=== PATIENT | female | born 1950 | race Caucasian/White ===

== ENCOUNTER 2017-12-29 09:13 | Day surgery (SDC) | payer OTHER ==
[~2017-12-29] VITALS: Ht 157.5 cm; Wt 60.5 kg
[~2017-12-29 09:13] MED LIST: ALPR-475 PO; AMLO10TA2 PO; AMLO5TAB2 PO; ASPI-496 PO; ASPI-621 PO; ATOR10TA9 PO; ATOR20TA PO; CARI250T PO; CITA10TA4 PO; DOXY100T PO; EZET10TA18 PO; INSU100I28 SQ-INSULIN; INSU100V13 SQ; LAMO25TA PO; LEVO500T47 PO; LISI-167 PO; LISI2.5T PO; LORA-445 PO; METF10002 PO; METO25TA91 PO; ONDA4TAB7 PO; OXYC5TAB3 PO; POLY17PO5 PO; TAMS-11 PO; THC PO; TRAM50TA2 PO
[2017-12-29] MEDS ORDERED: SODIUM CHLORIDE 0.9% 1,000 ML IV SCH (09:30)
[2017-12-29 09:38] VITALS: BP 156/98
[2017-12-29] MEDS ORDERED: LIDOCAINE 1%-EPI 1:100K, 30ML SQ PRN (10:00)
[2017-12-29] MEDS ORDERED: PLEASE ENTER HEIGHT AND WEIGHT MC SCH (10:00)
== END 2017-12-29 16:00 ==
LOC: CACL 09:13
PROVIDERS: ATTEND Internal Medicine Cardiovascular Disease
DX: Z45.09 Encounter for adjustment and management of other cardiac device (principal); E11.9 Type 2 diabetes mellitus without complications; I10 Essential (primary) hypertension; E78.2 Mixed hyperlipidemia; G47.33 Obstructive sleep apnea (adult) (pediatric); Z79.82 Long term (current) use of aspirin; Z88.1 Allergy status to other antibiotic agents; Z88.5 Allergy status to narcotic agent; Z88.0 Allergy status to penicillin; Z88.8 Allergy status to other drugs, medicaments and biological substances
CPT/HCPCS: 33282; 33284; C1764

== ENCOUNTER 2018-12-04 10:07 | Emergency (ER) | payer OTHER, MEDICARE ==
[~2018-12-04] VITALS: Ht 157.5 cm; Wt 62.9 kg
[~2018-12-04 10:07] MED LIST changes: +AMLO-150 PO; -AMLO10TA2 PO; +AMLO10TA8 PO; -AMLO5TAB2 PO; -ASPI-621 PO; +ASPI81TA45 PO; -LAMO25TA PO; +LAMO25TA9 PO
--- NOTE | 2018-12-04 10:25 | NUR ---
ROOMED FROM TRIAGE PLACED ON COUNSEL-VITALS WNL 81, 148/71, HOME FSBS 149 EKG OBTAINED IN TRIAGE DENIES SOB AT THIS TIME, DOES REPORT CONTINUED NAUSEA HAS NOT TAKEN ASA-ON PLAVIX UPDATED ON ESTIMATED POC
[2018-12-04] MEDS ORDERED: CLOP75TA52 PO (10:37)
[2018-12-04] MEDS ORDERED: ASPI-515 PO (10:41)
--- NOTE | 2018-12-04 10:47 | NUR ---
PATIENT REPORT SHE IMPLANTED HOLTER MONITOR TAKING PLAVIX FOR STROKE HX, WAS TAKING 81 OF ASA/DAY. HELD TODAY SHE IS HAVING PROCEDURE NEXT MONDAY
[2018-12-04] MEDS ORDERED: ONDANSETRON 2MG/ML, 2ML ONE (11:20)
--- NOTE | 2018-12-04 11:27 | NUR ---
PIV PLACED FROM WHICH LABS OBTAINED. PATIENT UP TO VOID-SAMPLE OBTAINED AND SENT MEDICATED PER EMAR VITALS REMAINS STABLE ON CUSHION MAKER-CONTINUES TO DENY SXS X RAY TO BEDSIDE
[2018-12-04 11:30] LABS: BASOPHILS # (AUTO) 0.03 x10^3/uL (0-0.1); BASOPHILS % (AUTO) 0 % (0-1); EOSINOPHILS # (AUTO) 0.03 x10^3/uL (0-0.4); EOSINOPHILS % (AUTO) 0 % (1-7); LYMPHOCYTES # (AUTO) 1.76 x10^3/uL (1-3.4); LYMPHOCYTES % (AUTO) 15 % (22-44); MD NO; MEAN CORPUSCULAR HEMOGLOBIN 30.2 pg (27.0-34.8); MEAN CORPUSCULAR HGB CONC 33.9 g/dL (32.4-35.8); MEAN CORPUSCULAR VOLUME 89.2 fL (80-100); MEAN PLATELET VOLUME 7.8 fL (7.4-10.4); MONOCYTES # (AUTO) 0.38 x10^3/uL (0.2-0.8); MONOCYTES % (AUTO) 3 % (2-9); NEUTROPHILS # (AUTO) 9.52 x10^3/uL (1.8-6.8); NEUTROPHILS % (AUTO) 81 % (42-75); PLATELET COUNT 326 x10^3/uL (130-400); RED CELL DISTRIBUTION WIDTH 13.3 % (9.6-15.2)
[2018-12-04] MEDS ORDERED: SODIUM CHLORIDE FLUSH 10ML SYR IVF ONE (11:30)
[2018-12-04] MEDS ORDERED: ONDANSETRON 2MG/ML, 2ML IVPush PRN (11:30)
[2018-12-04 11:43] LABS: ALBUMIN 4.8 g/dL (3.4-5.0); ANION GAP 9 mmol/L (5-15); CALCIUM 9.9 mg/dL (8.5-10.1); CHLORIDE 102 mmol/L (98-107)
[2018-12-04 11:48] LABS: ALANINE AMINOTRANSFERASE 29 U/L (12-78); ALKALINE PHOSPHATASE 68 U/L (45-117); BILIRUBIN,TOTAL 0.5 mg/dL (0.2-1.0); CREATININE 1.22 mg/dL (0.55-1.02); TOTAL PROTEIN 8.6 g/dL (6.4-8.2); TROPONIN I < 0.015 ng/mL (0.000-0.045)
--- NOTE | 2018-12-04 12:11 | NUR ---
PATIENT RESTING COMFORTABLY IN BED. DENIES SOB REPORTS NAUSEA COMPLETELY IMPROVED VITALS STABLE ON PEN TENDER UPDATED ON PEN TENDER
--- NOTE | 2018-12-04 12:12 | NUR ---
AFTER CLARIFICATION WITH LAB/PROVIDER-LACTATE/CULTURES DISCONTINUED
--- NOTE | 2018-12-04 13:20 | NUR ---
PATIENT TOLERATING PO FLUIDS/SOLIDS. CONTINUES TO REPORTS NO SOB/NAUSEA VITALS STABLE ON MONITOR ASKING TO GO HOME PROVIDER TO BEDSIDE TO EXPLAIN PLAN (TO CALL VENDING ENTERPRISES SUPERVISOR WHO WILL CONTACT HER FOR F/U, SPECIFY EVENT DETAILS HOPEFULLY OBTAINED BY IMPLANTED DIRECTOR EXECUTIVE COMMUNICATIONS
[2018-12-04 13:39] VITALS: BP 128/81
== END 2018-12-04 13:41 | disposition home or self-care (01) ==
LOC: ED 13:28
DX: R06.00 Dyspnea, unspecified (principal); F41.1 Generalized anxiety disorder; E11.9 Type 2 diabetes mellitus without complications; I10 Essential (primary) hypertension; Z90.49 Acquired absence of other specified parts of digestive tract; Z87.891 Personal history of nicotine dependence
CPT/HCPCS: 36415; 71045; 80053; 84484; 85025; 93005; 96374; 99284; J2405

== ENCOUNTER 2018-12-08 11:15 | Emergency (ER) | payer OTHER, MEDICARE ==
[~2018-12-08] VITALS: Ht 157.5 cm; Wt 62.0 kg
[~2018-12-08 11:15] MED LIST changes: +ASPI-515 PO; +CLOP75TA52 PO
[2018-12-08 12:32] LABS: BASOPHILS # (AUTO) 0.06 x10^3/uL (0-0.1); BASOPHILS % (AUTO) 1 % (0-1); EOSINOPHILS # (AUTO) 0.06 x10^3/uL (0-0.4); EOSINOPHILS % (AUTO) 1 % (1-7); LYMPHOCYTES # (AUTO) 1.49 x10^3/uL (1-3.4); LYMPHOCYTES % (AUTO) 19 % (22-44); MD NO; MEAN CORPUSCULAR HEMOGLOBIN 30.7 pg (27.0-34.8); MEAN CORPUSCULAR HGB CONC 33.8 g/dL (32.4-35.8); MEAN CORPUSCULAR VOLUME 90.8 fL (80-100); MEAN PLATELET VOLUME 7.8 fL (7.4-10.4); MONOCYTES % (AUTO) 5 % (2-9); NEUTROPHILS # (AUTO) 5.88 x10^3/uL (1.8-6.8); NEUTROPHILS % (AUTO) 75 % (42-75); PLATELET COUNT 279 x10^3/uL (130-400); RED BLOOD COUNT 4.84 x10^6/uL (3.82-5.3); RED CELL DISTRIBUTION WIDTH 13.1 % (9.6-15.2)
[2018-12-08 12:33] LABS: ANION GAP 9 mmol/L (5-15); CALCIUM 9.3 mg/dL (8.5-10.1); CHLORIDE 106 mmol/L (98-107); CREATININE 1.25 mg/dL (0.55-1.02)
[2018-12-08 12:51] LABS: FIO2 ROOM AIR %
[2018-12-08] MEDS ORDERED: ONDANSETRON ODT 4 MG PO ONE (14:00)
[2018-12-08] MEDS ORDERED: ONDANSETRON ODT 4 MG ONE (14:01)
[2018-12-08 14:03] VITALS: BP 147/77
== END 2018-12-08 14:05 | disposition home or self-care (01) ==
LOC: ED 12:28
DX: R06.00 Dyspnea, unspecified (principal); F41.9 Anxiety disorder, unspecified; E11.9 Type 2 diabetes mellitus without complications; I10 Essential (primary) hypertension; Z86.73 Personal history of transient ischemic attack (TIA), and cerebral infarction without residual deficits; Z90.49 Acquired absence of other specified parts of digestive tract
CPT/HCPCS: 36600; 80048; 82803; 85025; 93005; 99284; Q0162

== ENCOUNTER 2018-12-09 09:35 | Emergency (ER) | payer OTHER, MEDICARE ==
[~2018-12-09] VITALS: Ht 157.5 cm; Wt 62.0 kg
--- NOTE | 2018-12-09 09:50 | NUR ---
PT STATES SHE HAS A PEREZ THE BACK OF HER HEAD AND NAUSEA, FOR WHICH SHE RECEIVED ZOFRAN ENROUTE. STATES SHE FEELS WEAK AND THAT SHE KNEW SHE COULDN'T STAY HOME TODAY. THIS IS PT'S 3RD VISIT TO OUR ER THIS WEEK
--- NOTE | 2018-12-09 09:52 | NUR ---
REPORT RECEIVED FROM JAIMIE WHALEN. ASSUMED CARE OF PT.
[2018-12-09] MEDS ORDERED: SODIUM CHLORIDE 0.9% 1,000ML IVBOLUS ONE (10:00)
[2018-12-09] MEDS ORDERED: SODIUM CHLORIDE FLUSH 10ML SYR IVF ONE (10:00)
[2018-12-09 10:51] LABS: TROPONIN I < 0.015 ng/mL (0.000-0.045)
--- NOTE | 2018-12-09 11:32 | NUR ---
PT STEADY UPON AMBULATION TO RESTROOM. PT TESTED WITH PULSE OX WHILE AMBULATING, 94-96% RA CONSISTENTLY WHILE WALKING. PT AO X 4. SKIN PWD. REPS EVEN AND UNLABORED. PT CONT TO C/O NAUSEA BUT DENIES VOMITING OR DIARRHEA. AT BEDSIDE. CALL LIGHT WITHIN REACH. WILL CONT TO MONITOR PT.
[2018-12-09 12:22] VITALS: BP 129/84
== END 2018-12-09 12:31 | disposition home or self-care (01) ==
LOC: ED 10:20
DX: F41.1 Generalized anxiety disorder (principal); E11.9 Type 2 diabetes mellitus without complications; I10 Essential (primary) hypertension; Z86.73 Personal history of transient ischemic attack (TIA), and cerebral infarction without residual deficits; Z90.49 Acquired absence of other specified parts of digestive tract
CPT/HCPCS: 36415; 84439; 84443; 84484; 85379; 93005; 99284; J7030

== ENCOUNTER → 2020-02-17 | Outpatient (CLI) | payer OTHER, MEDICARE ==
[~2020-02-17] MED LIST changes: -ALPR-475 PO; +ALPR0.5T7 PO; -EZET10TA18 PO; +EZET10TA70 PO
== END | disposition home or self-care (01) ==
LOC: CFH 11:22
PROVIDERS: ATTEND Family Medicine
DX: Z12.31 Encounter for screening mammogram for malignant neoplasm of breast (principal); N95.9 Unspecified menopausal and perimenopausal disorder; M85.80 Other specified disorders of bone density and structure, unspecified site
CPT/HCPCS: 77067; 77080

== ENCOUNTER 2020-04-10 11:05 | Emergency (ER) | payer OTHER, MEDICARE ==
[~2020-04-10] VITALS: Ht 157.5 cm; Wt 59.1 kg
[~2020-04-10 11:05] MED LIST changes: +AMLO-211 PO; -AMLO10TA8 PO
--- NOTE | 2020-04-10 11:23 | NUR ---
EKG IN TRAIGE
--- NOTE | 2020-04-10 12:39 | NUR ---
BEAUTY COUNSELOR: PT TO ROOM FROM LOBBY VIA W/C
[2020-04-10 12:47] LABS: ALBUMIN 4.3 g/dL (3.4-5.0); ANION GAP 7 mmol/L (5-15); CALCIUM 9.4 mg/dL (8.5-10.1); CHLORIDE 105 mmol/L (98-107)
[2020-04-10 12:48] VITALS: BP 145/97
--- NOTE | 2020-04-10 12:49 | NUR ---
THIS IS A 69 YO F W/ C/O SOB X3 DAYS. PT REPORTS WHEN SHE FEELS SHORTOF BREATH SHE STARTS TO HAVE ANXIETY WHICH MAKES SOB WORSE. PT REPORTS HX OF SLEEP APNEA AND WEARS CPAP AT NIGHT. PT RESTING ON ISN SolutionsNEY W/ CALL LIGHT IN REACH AND SIDE RAILS UPX2. O2 SAT 97% RA. VSS, NADN. CXR IN ROOM.
[2020-04-10 12:55] LABS: ALANINE AMINOTRANSFERASE 20 U/L (12-78); ALKALINE PHOSPHATASE 70 U/L (45-117); BILIRUBIN,TOTAL 1.1 mg/dL (0.2-1.0); CREATININE 1.22 mg/dL (0.55-1.02); TOTAL PROTEIN 8.1 g/dL (6.4-8.2); TROPONIN I < 0.015 ng/mL (0.000-0.045)
[2020-04-10 12:56] LABS: BASOPHILS % (AUTO) 0 % (0-1); EOSINOPHILS % (AUTO) 1 % (1-7); LYMPHOCYTES % (AUTO) 24 % (22-44); MEAN CORPUSCULAR HEMOGLOBIN 28.7 pg (27.0-34.8); MEAN CORPUSCULAR HGB CONC 34.1 g/dL (32.4-35.8); MEAN PLATELET VOLUME 8.2 fL (7.4-10.4); MONOCYTES % (AUTO) 8 % (2-9); NEUTROPHILS % (AUTO) 67 % (42-75); PLATELET COUNT 261 x10^3/uL (130-400)
[2020-04-10 13:01] LABS: MD NO
--- NOTE | 2020-04-10 13:43 | NUR ---
Patient given discharge instructions and they have confirmed that they understand the instructions. Patient ambulatory with steady gait.
== END 2020-04-10 13:44 | disposition home or self-care (01) ==
LOC: ED 13:26
DX: U07.1 COVID-19 (principal); F41.1 Generalized anxiety disorder; R94.31 Abnormal electrocardiogram [ECG] [EKG]; I10 Essential (primary) hypertension; E11.9 Type 2 diabetes mellitus without complications; Z86.73 Personal history of transient ischemic attack (TIA), and cerebral infarction without residual deficits; Z90.49 Acquired absence of other specified parts of digestive tract
CPT/HCPCS: 36415; 71045; 80053; 83880; 84484; 85025; 87635; 93005; 99285

== ENCOUNTER → 2020-08-10 | Outpatient (CLI) | payer OTHER, MEDICARE ==
[~2020-08-10] MED LIST changes: -ASPI-515 PO; +ASPI-963 PO; +GADOTERATE 7.5 MMOL/15ML SYR ONE; -OXYC5TAB3 PO; +OXYC5TAB98 PO
== END | disposition home or self-care (01) ==
LOC: EDSTATUS 07-21 08:25 → RAD 14:01
PROVIDERS: ATTEND Psychiatry & Neurology Neurology
DX: I63.9 Cerebral infarction, unspecified (principal); H47.011 Ischemic optic neuropathy, right eye; G31.9 Degenerative disease of nervous system, unspecified
CPT/HCPCS: 70543; A9575

== ENCOUNTER → 2020-11-16 | Outpatient (CLI) | payer OTHER, MEDICARE ==
[~2020-11-16] MED LIST changes: -GADOTERATE 7.5 MMOL/15ML SYR ONE
== END | disposition home or self-care (01) ==
LOC: CVU 14:40
PROVIDERS: ATTEND Psychiatry & Neurology Neurology
DX: I08.0 Rheumatic disorders of both mitral and aortic valves (principal); I65.22 Occlusion and stenosis of left carotid artery; I63.311 Cerebral infarction due to thrombosis of right middle cerebral artery; H47.011 Ischemic optic neuropathy, right eye
CPT/HCPCS: 93306; 93880

== ENCOUNTER 2020-11-30 10:11 | Outpatient (CLI) | payer OTHER, MEDICARE ==
[2020-11-30] MEDS ORDERED: GADOTERATE 10 MMOL/20ML SYR ONE (17:45)
== END 2020-11-30 23:59 | disposition home or self-care (01) ==
LOC: RAD 10:11
PROVIDERS: ATTEND Psychiatry & Neurology Neurology
DX: I65.21 Occlusion and stenosis of right carotid artery (principal); I63.311 Cerebral infarction due to thrombosis of right middle cerebral artery; H47.011 Ischemic optic neuropathy, right eye
CPT/HCPCS: 70544; 70549; A9575